=== PATIENT | female | born 1990 | race Caucasian/White ===

== ENCOUNTER → 2020-09-13 | Outpatient (CLI) | payer OTHER ==
[~2020-09-13] MED LIST: ISOVUE-370 76% 100ML VIAL As Ordered ONE
--- NOTE | 2020-09-13 13:18 | REP ---
INDICATION: INFERTILITY. COMPARISON: None. TECHNIQUE: Referring clinician catheterized the cervix and injected contrast well I performed fluoroscopy. FINDINGS: The uterine cavity opacifies well with contrast with no filling defect or contour abnormality. Both fallopian tubes opacify symmetrically and are normal in caliber. There is bilateral intraperitoneal spillage of contrast. IMPRESSION: Bilateral fallopian tube patency. 0.8 minutes fluoroscopy time utilized. <Electronically signed by Chacorta Herron > 09/13/20 [id number]
--- NOTE | 2020-09-13 13:51 | ROOPDOC ---
[facility] Report Of Operation Report of Operation REPRODUCTIVE ENDOCRINOLOGY HSG PROCEDURE NOTE PRE-PROCEDURE DIAGNOSIS: 1) Infertility POST-PROCEDURE DIAGNOSIS: Same PHYSICIAN PERFORMING PROCEDURE: Anuel Sanches CONSENT: The HSG procedure, indication, risks, and benefits were discussed with the patient and informed written consent was obtained. PATIENT COUNSELLED IN REGARDS TO HSG RISKS AND BENEFITS TO INCLUDE INFECTION, DISRUPTION OF , BLEEDING, AND PAIN. FINAL TIME OUT PERFORMED IMMEDIATELY PRIOR TO HSG. PROCEDURE: STERILE SPECULUM PLACED CERVIX CLEANSED WITH BETADINE TRIPLE SWAB TENACULUM UTILIZED (NO) HSG CATHETER PASSED, BALLOON INFLATED APPROX ____20__mL OF ISOVUE CONTRAST WAS INFUSED AP AND OBLIQUE IMAGES WERE OBTAINED PRELIMINARY FINDINGS: 1) UTERINE FINDINGS NORMAL 2) LEFT FALLOPIAN TUBE PATENT 3) RIGHT FALLOPIAN TUBE PATENT PATIENT TOLERATED THE PROCEDURE WELL DISCHARGED TO HOME WITH PRECAUTIONS ANTIBIOTICS RECOMMENDED: NO COMPLICATIONS: NONE DISCHARGE INSTRUCTIONS GIVEN PATIENT TO F/U WITH ORDERING PROVIDER FOR FINAL IMPRESSION AND CLINICAL C ORRELATION APPROX TIME: 10 MIN COUNSELLING 20 MIN IN PROCEDURE ANUEL SANCHES DO Sep 13, 2020 13:51
== END ==
LOC: M RADPRO 12:18
PROVIDERS: ATTEND Obstetrics & Gynecology
DX: N97.9 Female infertility, unspecified (principal)
CPT/HCPCS: 58340; 74740; Q9967